=== PATIENT | male | born 1960 | race Caucasian/White ===

== ENCOUNTER → 2022-07-30 | Outpatient (CLI) | payer MEDICARE ==
[~2022-07-30] MED LIST: CYCL10 PO; GABA600 PO; Norco 5-325 Ta1 EACH PO; Prednisone20 MG PO; Roxicodone5 MG PO
== END | disposition home or self-care (01) ==
LOC: LAB SHORT 09:00
DX: G89.4 Chronic pain syndrome (principal)

== ENCOUNTER → 2022-10-27 | Outpatient (CLI) | payer MEDICARE, OTHER ==
[~2022-10-27] MED LIST changes: +BENZ100A PO; +METO25ER PO; +METO50ER PO; +Methocarbamol500 MG PO; +NAPROXEN500 MG PO; +Neurontin800 MG PO; +OXYC10TA19 PO
[2022-11-03 05:09] LABS: CARBOXY-THC 62 (.)
== END | disposition home or self-care (01) ==
LOC: LAB 10:00 → LAB SHORT 10:00
PROVIDERS: Nurse Practitioner Family
DX: G89.4 Chronic pain syndrome (principal); Z79.899 Other long term (current) drug therapy
CPT/HCPCS: G0480